=== PATIENT | female | born 1960 | race Caucasian/White ===

== ENCOUNTER → 2024-07-23 | Outpatient (CLI) | payer OTHER | LOC: M RAD 15:12 | DX: M79.644 Pain in right finger(s) (principal); R09.81 Nasal congestion ==

== ENCOUNTER → 2025-03-15 | Outpatient (CLI) | payer OTHER | LOC: M PLAIMG 08:30 | PROVIDERS: ATTEND Otolaryngology | DX: J34.2 Deviated nasal septum (principal); J32.0 Chronic maxillary sinusitis; J01.00 Acute maxillary sinusitis, unspecified ==